=== PATIENT | female | born 2000 | race Caucasian/White ===

== ENCOUNTER 2020-05-27 14:42 | Emergency (ER) | payer MEDICAID ==
[~2020-05-27] VITALS: Ht 160 cm; Wt 53.6 kg
[2020-05-27] MEDS ORDERED: SULF1TAB49 PO (16:41)
[2020-05-27 16:50] VITALS: BP 109/64
== END 2020-05-27 17:06 | disposition home or self-care (01) ==
LOC: ER 14:45
DX: L08.9 Local infection of the skin and subcutaneous tissue, unspecified (principal); B95.8 Unspecified staphylococcus as the cause of diseases classified elsewhere; Z88.1 Allergy status to other antibiotic agents; Z79.899 Other long term (current) drug therapy
CPT/HCPCS: 99283